=== PATIENT | female | born 1970 | race Caucasian/White ===

== ENCOUNTER 2018-04-21 19:35 | Emergency (ER) | payer OTHER, SELFPAY ==
[2018-04-21] MEDS ORDERED: Dexamethasone 4 mg/ml Vial ONE (20:30)
[2018-04-21] MEDS ORDERED: HYDROcodone/Acetaminophen 5/325 mg Tablet ONE (20:30)
[2018-04-21] MEDS ORDERED: AMOXicillin 250 MG CAP ONE (20:30)
[2018-04-21] MEDS ORDERED: Ketorolac Tromethamine 60 MG/2 ML VIAL ONE (20:30)
[2018-04-21] MEDS ORDERED: Dexamethasone 4 MG TAB ONE (20:30)
[2018-04-21] MEDS ORDERED: Benzonatate 100 MG CAP ONE (20:30)
== END 2018-04-21 20:56 | disposition home or self-care (01) ==
LOC: MADERS 19:35
DX: J02.0 Streptococcal pharyngitis (principal)
CPT/HCPCS: 87430; 87804; 96372; J1100; J1885; J8540

== ENCOUNTER 2023-04-29 17:02 | Outpatient (CLI) | payer BC | END 2023-04-29 17:03 | disposition home or self-care (01) | LOC: MADRAD 17:02 | PROVIDERS: ATTEND Family Medicine | DX: R05.3 Chronic cough (principal) | CPT/HCPCS: 71046 ==

== ENCOUNTER 2024-02-28 12:19 | Emergency (ER) | payer BC ==
[2024-02-28] MEDS ORDERED: Ibuprofen 600 MG TAB ONE (13:11)
== END 2024-02-28 14:20 | disposition home or self-care (01) ==
LOC: MADERS 12:19
DX: S90.31XA Contusion of right foot, initial encounter (principal); W20.8XXA Other cause of strike by thrown, projected or falling object, initial encounter
CPT/HCPCS: 99283

== ENCOUNTER 2024-12-03 21:01 | Emergency (ER) | payer SELFPAY ==
[2024-12-03] MEDS ORDERED: Prochlorperazine 10 MG/2 ML VIAL ONE ×2 (21:51→21:52)
[2024-12-03] MEDS ORDERED: diphenhydrAMINE 50 MG/ML VIAL ONE (21:51)
== END 2024-12-03 23:55 | disposition home or self-care (01) ==
LOC: MADERS 21:01
DX: U07.1 COVID-19 (principal)
CPT/HCPCS: 96374; 96375; J0780; J1100; J1200; J7050